=== PATIENT | male | born 1980 | race Caucasian/White ===

== ENCOUNTER 2022-08-02 22:56 | Emergency (ER) | payer SELFPAY ==
[2022-08-02] VITALS (11 sets, daily range): BP systolic 99–120; BP diastolic 52–68; PULSE 66–84; RESP 14–21; TEMP 36.7; O2SAT 93–97
--- NOTE | 2022-08-02 22:45 | RT.EKG_ITS ---
APPROVED REPORT Exam: Resting ECG Reason for Exam: chest pain Patient Location: E HR:68 bpm ECG Measurements Heart Rate 68 AXIS TN 149 P 46 QRSd 97 QRS -15 QT 406 T 19 QTc 434 Conclusion Sinus rhythm...normal P axis, V-rate 60- 99 Physician: no stemi
--- NOTE | 2022-08-02 23:00 | DI.CT_ITS ---
Exam(s) CT CHEST PE CTA EXAM: CT CHEST PE CTA CLINICAL HISTORY: stabbing right CP, eval for PE. TECHNIQUE: Imaging Protocol: CT angiography of the chest was performed using pulmonary embolus bianca col. Multi planar reconstructions were performed. CONTRAST MATERIAL: Intravenous: Omnipaque 350 Contrast volume: 100 cc COMPARISON: No exams were available for comparison FINDINGS: CHEST: PULMONARY ARTERIES: Less than optimal opacification of the distal pulmonary arteries. There are no o bvious intraluminal filling defects to suggest obvious acute pulmonary emboli. LUNGS: There are no infiltrates nor evidence of pulmonary infarction.. There are no pleural effusions . MEDIASTINUM: There is no hilar nor mediastinal adenopathy. Visualized thyroid unremarkable. CARDIAC: Heart size is upper normal. There is no pericardial effusion.Caliber of the thoracic aorta is within normal limits. No evidence of aortic dissection. There is no significant shift of the inte rventricular septum. PARTIALLY VISUALIZED UPPERMOST ABDOMEN: No obvious findings OSSEOUS: No significant osseous lesions.No acute fractures evident.. IMPRESSION: 1. No evidence of acute pulmonary emboli. No evidence of pulmonary infarction.No pleural effusions. 2. No acute intrathoracic findings. RADIATION DOSE DELIVERED: 669.25mGy.cm Total DLP DATA REPOSITORY: All CT scans at this facility are submitted to the National Radiology Data Registry (NRDR) Dose Index Registry (DIR) with the [employer] (ACR). RADIATION OPTIMIZATION: All CT scans at this facility use at least one of these dose optimization te chniques: automated exposure control; mA and/or kV adjustment per patient size (includes targeted exa ms where dose is matched to clinical indication); or iterative reconstruction.
--- NOTE | 2022-08-02 23:11 | ED.GENADUL_ITS ---
Discharge Plan Disposition Patient Disposition: Home Discharge Details Chief Complaint: Chest Pain Clinical Impression: Chest pain Primary Care Provider: Paul Gage ED Provider: Brad Herron Home Meds and New Rx's Prescriptions: No Action No Known Home Meds Discharge Instructions Instructions: Chest Pain (ED) Additional Instructions: At this time your work-up has returned normal. There is no current evidence of heart attack. That being said it is our recommendation that he stay overnight for stress testing. You have elected to go home, and as we discussed together it is imperative that you return immediately if you have any return or worsening of your symptoms. In addition to this we are scheduling an urgent outpatient stress test for you. Please do not miss this appointment. They will contact you for the appointment time. If you notice any worsening of your symptoms, or any new symptoms such as vomiting, diarrhea, fever, chills, shortness of breath, chest pain, numbness, weakness, or fainting , please return immediately to the emergency department for reevaluation. Please follow up with your primary care provider as soon as possible for reassessment and reevaluation. As always, it was a pleasure participating in your medical care today. Referrals: Paul Gage MD [Primary Care Provider] - Medical Decision Making 42-year-old old male with past medical history of tobacco use, vaping, strong family history of cardiac disease in his mother, father, and other relatives, who presents today for evaluation of chest pain. Patient states that 2 hours ago he developed stabbing right-sided chest pain. It is worse with breathing. It initially started at rest, but got worse whenever he would get up and exert himself. It was improved by rest subsequently. He denies any cough, fever or chills. He denies any numbness or tingling. He denies any current vomiting or diarrhea. He denies any recent long trips, surgeries or procedures. No other complaints at this time. He states that the stabbing pain also feels like a heavy weight. Radiates to his left arm. He denies any tearing or ripping sensation. No history of symptoms like this in the past. Physical exam demonstrates well-appearing male, vital signs stable. Concern is for PE, ACS, less likely pneumothorax. Symptoms appear inconsistent with dissection. Will get CTA of the chest, evaluate for cardiac etiology, monitor closely and reassess. 2:26 AM Laboratory work-up has returned, no significant abnormalities. Initial and delta troponin are normal. proBNP is normal suggesting no heart strain. CTA is negative for evidence of PE or other significant abnormality. Patient feels si gnificantly improved and better. Patient does have elevated heart score with risk factors of family history, tobacco use, and mild obesity. Recommendation was made clear to the patient to stay overnight for stress testing on Thursday morning. I did discuss with the patient admission/observation to the hospital , and at this time through notable discussion, weighing the risks and benefits, utilizing a shared decision making process, and with a very clear discussion on the benefit of admission and the risks associated with discharge including the unlikely but potential worst case scenario of or lifelong disability the patient has refused admission and would like to go home. Patient is of a appropriate age to make decisions. The patient is of sound mind, appears clinically sober, and has capacity to make decisions by my clinical exam. Respecting the patient's wishes, they will be discharged home. We will schedule an emergent outpatient stress test for the patient. I made it extremely clear that the patient should return immediately if he has any return or worsening of his symptoms. This was also reiterated to his family who is at bedside. Discussed red flags for which to return. Symptoms at this time appear inconsistent for STEMI, PE, or dissection. Stress, anxiety, and GERD may be a component however cardiac etiology still is on the differential. I have extensively reviewed the treatment plan and discharge instructions with the patient and their family. I have addressed all patient concerns at this time. The patient and family was made aware of what symptoms to monitor for that would warrant a return to the emergency department. Discussed the plan with the patient and family, they demonstrate verbal understanding and agreement with our assessment and plan at this time. The documentation in this chart was dictated using [employer] dictation software. Please excuse any dictation errors. FINDINGS: Pulmonary arteries: Normal. No pulmonary emboli. Aorta: Unremarkable. No aortic aneurysm. No aortic dissection. Lungs: Unremarkable. No consolidation. No masses. Pleural spaces: Unremarkable. No pneumothorax. No pleural effusion. Heart: Unremarkable. No cardiomegaly. No pericardial effusion. Lymph nodes: Unremarkable. No enlarged lymph nodes. Bones/joints: Multilevel thoracic spine degenerative disc space narrowing and osteophyte formation, with mild kyphosis of the lower thoracic spine, secondary to minimal chronic multilevel anterior wedging. Soft tissues: Unremarkable. IMPRESSION: No acute thoracic abnormality Thank you for allowing us to participate in the care of your patient. Dictated and Authenticated by: Levar Gore MD 08/03/2022 1:28 AM Eastern Time ([place] & [place]) HPI General Date/Time Provider Initiated Documentation: 08/02/22 22:57 . HPI Narrative: 42-year-old old male with past medical history of tobacco use, vaping, strong family history of cardiac disease in his mother, father, and other relatives, who presents today for evaluation of chest pain. Patient states that 2 hours ago he developed stabbing right-sided chest pain. It is worse with breathing. It initially started at rest, but got worse whenever he would get up and exert himself. It was improved by rest subsequently. He denies any cough, fever or chills. He denies any numbness or tingling. He denies any current vomiting or diarrhea. He denies any recent long trips, surgeries or procedures. No other complaints at this time. He states that the stabbing pain also feels like a heavy weight. Radiates to his left arm. He denies any tearing or ripping sensation. No history of symptoms like this in the past. Related Data Home Medications Medication Instructions Recorded Confirmed Unknown [No Known Home Meds] 08/02/22 08/02/22 Allergies Allergy/AdvReac Type Severity Reaction Status Date / Time No Known Allergies Allergy Unverified 08/02/22 23:54 Review of Systems All systems reviewed & are unremarkable except as noted in HPI and below PFSH All Active Problems (Updated 08/03/22 @ 02:25 by Brad Herron DO) Chest pain (Acute) Social History Smoking/Tobacco Use Status: Current, status unknown Tobacco Type: cigarettes Tobacco: How many years used: 10 Smoking risk assessment performed?: Yes Alcohol Intake: current Alcohol type: beer, wine and hard liquor Substance use type: does not use Do you feel safe at home: Yes Do you feel safe in your relationship?: Yes Exam Narrative Exam Narrative: 1.Const: Well-nourished, Well-developed, appearing stated age 2.Eyes: PERRL, no conjunctival injection, and symmetrical lids. 3.ENT: Atraumatic external nose and ears. Moist MM. Neck: Symmetric, trachea midline, No thyromegaly. 4.CVS: +S1/S2, No murmurs or gallops. Peripheral pulses 2+ and equal in all extremities. Brisk capillary refill in all extremities. 5.RESP: Unlabored respiratory effort. Clear to auscultation bilaterally. No wheezes rales or rhonchi 6.GI: Soft, Nontender/Nondistended, No hepatosplenomegaly. No guarding or rebound. 7.MSK: Normocephalic/Atraumatic, Extremities w/o deformity or ttp No cyanosis or clubbing, Normal movement of all extremities 8.Skin: Warm, Dry. No rashes or lesions. 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 Sensation grossly intact, no focal neurologic deficits. 10.Psych: (AAO) x3. Appropriate mood and affect
[2022-08-02 23:40] LABS: Abs Immature Grans 0.02 10^3/uL (0.0-0.06); Absolute Basophil Count 0.04 10^3/uL (0.0-0.2); Absolute Eosinophil Count 0.31 10^3/uL (0.0-0.7); Absolute Lymphocyte Count 2.81 10^3/uL (1.2-3.4); Absolute Monocyte Count 0.43 10^3/uL (0.1-0.8); Basophils % 0.5; Eosinophils % 3.7; HCT 43.2 % (40.0-50.0); HGB 14.5 g/dL (13.5-17.5); Immature Grans % 0.2; Lymphocytes % 33.8; MCH 30.7 pg (27.0-33.0); MCHC 33.6 % (32.0-36.0); MCV 92 fL (80-95); MPV 10.9 fL (8.0-11.0); Monocytes % 5.2; Neutrophils % 56.6; Platelet Count 176 10^3/uL (130-400); RBC 4.72 10^6/uL (4.36-5.78); RDW 13.3 % (11.8-14.1); RDW-SD 45.2 fL; WBC 8.31 10^3/uL (4.4-10.8)
[2022-08-02] MEDS: Aspirin 81 MG CHEW 324 MG CH (23:41)
[2022-08-02] MEDS: nitroGLYcerin 0.4 MG TAB SL (23:41)
[2022-08-02 23:53] LABS: INR 0.9 (0.9-1.1); PTT Activated 23.9 sec (21.5-31.9); Prothrombin Time 9.4 sec (9.3-11.0)
[2022-08-03] VITALS (14 sets, daily range): PULSE 71–78; RESP 15–24; O2SAT 94–98
[2022-08-03 00:03] LABS: ALT 40 U/L (16-63); AST 19 U/L (15-37); Albumin 3.5 g/dL (3.4-5.0); Alkaline Phosphatase 94 U/L (46-116); Anion Gap 6.7 mmol/L (3-11); BUN 24 mg/dL (7-18); Bilirubin, Total 0.3 mg/dL (0.2-1.0); CO2 28.3 mmol/L (21.0-32.0); CREATININE 1.1 mg/dL (0.70-1.30); Calcium 8.5 mg/dL (8.5-10.1); Chloride 105 mmol/L (98-107); Estimated GFR 84.89 (mL/min/1.73m2); Glucose 135 mg/dL (74-106); Potassium 3.7 mmol/L (3.5-5.1); Sodium 140 mmol/L (136-145); Total Protein 6.4 g/dL (6.4-8.2); Troponin I < 50 ng/L (<or=60)
[2022-08-03 00:04] LABS: NT-proBNP 71 pg/mL (<300); TSH (W/Ref FT4) 2.08 uIU/mL (0.36-3.74)
[2022-08-03] MEDS: Omnipaque 350 MG/ML 100 ML BTL IJ (00:15)
[2022-08-03] MEDS: Normal Saline - Diluent 50 ML VIAL IJ (00:16)
--- NOTE | 2022-08-03 01:29 | DI.VRAD_ITS ---
PROCEDURE INFORMATION: Exam: CTA Chest With Contrast Exam date and time: 08/03/2022 12:00 AM Age: 42 years old Clinical indication: Pain; Chest pressure and right-sided TECHNIQUE: Imaging protocol: Computed tomographic angiography of the chest with contrast. 3D rendering (Not supervised by radiologist): MIP and/or 3D reconstructed images were created by the technologist. Contrast material: OMNIPAQUE 350; Contrast volume: 100 ml; Contrast route: INTRAVENOUS (IV); COMPARISON: No relevant prior studies available. FINDINGS: Pulmonary arteries: Normal. No pulmonary emboli. Aorta: Unremarkable. No aortic aneurysm. No aortic dissection. Lungs: Unremarkable. No consolidation. No masses. Pleural spaces: Unremarkable. No pneumothorax. No pleural effusion. Heart: Unremarkable. No cardiomegaly. No pericardial effusion. Lymph nodes: Unremarkable. No enlarged lymph nodes. Bones/joints: Multilevel thoracic spine degenerative disc space narrowing and osteophyte formation, with mild kyphosis of the lower thoracic spine, secondary to minimal chronic multilevel anterior wedging. Soft tissues: Unremarkable. IMPRESSION: No acute thoracic abnormality. Dictated and Authenticated by: Levar Gore MD. Ordering:DORIE Salinas MD
--- NOTE | 2022-08-03 01:45 | RT.EKG_ITS ---
APPROVED REPORT Exam: Resting ECG Reason for Exam: chest pain Patient Location: E HR:68 bpm ECG Measurements Heart Rate 68 AXIS MO 154 P 24 QRSd 95 QRS -6 QT 402 T 21 QTc 429 Conclusion Sinus rhythm...normal P axis, V-rate 60- 99 Physician: no stemi
[2022-08-03 02:07] LABS: Troponin I < 50 ng/L (<or=60)
--- NOTE | 2022-08-03 05:22 | NUR.NOTE ---
Regular Exercise Treadmill Test requ[facility]. Referral to Care Management to establish pcp for chest pain sooner rather than later.Nursing Note:
== END 2022-08-03 02:35 | disposition home or self-care (01) ==
PROVIDERS: Emergency Provider Student in an Organized Health Care Education/Training Program; PCP Family Medicine
DX: R07.9 Chest pain, unspecified (principal); Z87.891 Personal history of nicotine dependence
CPT/HCPCS: 71275; 80053; 93005; 99284; 83880; 84443; 84484; 85025; 85610; 85730; 93010; J3490

== ENCOUNTER 2022-08-27 22:44 | Emergency (ER) | payer MEDICAID, SELFPAY ==
--- NOTE | 2022-08-27 22:45 | RT.EKG_ITS ---
APPROVED REPORT Exam: Resting ECG Reason for Exam: chest pains Patient Location: E HR:76 bpm ECG Measurements Heart Rate 76 AXIS TX 156 P 45 QRSd 97 QRS -25 QT 405 T 25 QTc 456 Conclusion Sinus rhythm...normal P axis, V-rate 60- 99 Physician: no stemi
[2022-08-27 22:48] VITALS: BP 134/68; PULSE 75; RESP 22; TEMP 37.5; O2SAT 97
--- NOTE | 2022-08-27 23:00 | DI.CT_ITS ---
Exam(s) CT ABDOMEN PELVIS W EXAM: CT ABDOMEN PELVIS W CLINICAL HISTORY: epigastric pain, eval gb and pancrease. TECHNIQUE: Imaging Protocol: Axial computed tomography images with coronal and sagittal reformatted images were created and reviewed CONTRAST MATERIAL: Intravenous: Omnipaque-350 100cc Oral: None COMPARISON: CT CT CHEST PE CTA from 08/03/2022 FINDINGS: VISUALIZED LUNG BASES: No nodules nor pleural effusions evident. ABDOMEN: There is no ascites. LIVER: There are no focal hepatic lesions evident. No dilated intrahepatic ducts. GALLBLADDER/BILIARY: No obvious gallbladder pathology. CBD is not dilated. PANCREAS: No evidence of pancreatic mass nor dilatation of the pancreatic duct. SPLEEN: Spleen is not enlarged. No obvious intrasplenic lesions. Splenic and portal veins are paten t. ADRENALS: There are no significant adrenal masses. KIDNEYS:No cysts evident. No solid renal masses. No calculi nor hydronephrosis.. ABDOMINAL AORTA: Abdominal aorta is not enlarged. LYMPH NODES:There is no retroperitoneal nor paraaortic adenopathy. ABDOMINAL WALL: No evidence of significant anterior abdominal wall nor inguinal hernia. GI: There is no evidence of bowel obstruction, free air, nor abscess. PELVIS: GI: Although some the appendix appears unremarkable, the mid aspect of the appendix appears dilated t o 11 mm, possibly significant. There is no calcified appendicolith evident in the appendix lumen. T here is very minimal streaking around the appendix. No adjacent adenopathy.There is sigmoid divertic nadia but without evidence of acute diverticulitis. LYMPH NODES: There is no intrapelvic nor inguinal adenopathy. REPRODUCTIVE: Prostate not enlarged. Seminal vesicles unremarkable. URINARY BLADDER: No calculi nor obvious masses evident OSSEOUS: Nonacute appearing wedging of lower thoracic vertebral bodies. No acute fractures evident. No significant osseous lesions. IMPRESSION: 1. Subtle prominence of part of the appendix, as described above. May represent early appendicitis. Correlation with physical exam and blood work recommended. 2. Sigmoid diverticulosis but no evidence of acute diverticulitis. First read by [facility]. RADIATION DOSE DELIVERED: 1,348.16mGy.cm Total DLP DATA REPOSITORY: All CT scans at this facility are submitted to the National Radiology Data Registry (NRDR) Dose Index Registry (DIR) with the [employer] (ACR). RADIATION OPTIMIZATION: All CT scans at this facility use at least one of these dose optimization te chniques: automated exposure control; mA and/or kV adjustment per patient size (includes targeted exa ms where dose is matched to clinical indication); or iterative reconstruction.
--- NOTE | 2022-08-27 23:10 | W.ED.GENAD ---
Discharge Plan Disposition Patient Disposition: Against Medical Advice Condition: Serious Discharge Details Clinical Impression: Acute appendicitis Primary Care Provider: None,None ED Provider: Brad Herron Home Meds and New Rx's Prescriptions: No Action No Known Home Meds Discharge Instructions Additional Instructions: It is not our recommendations that you leave. You do have a potentially life-threatening etiology called appendicitis. This requires immediate surgical management. If you change your mind at any point you can return immediately for consultation. Although this is not the ideal scenario, I will still be sending your images down to [facility], and letting them know about your potential arrival Medical Decision Making 42-year-old old male with past medical history of tobacco use, vaping, strong family history of cardiac disease in his mother, father, and other relatives, who presents today for evaluation of chest pain. Patient was here 1 month ago with chest pain at that time, work-up was negative, patient declined admission, patient was discharged with outpatient stress test which unfortunately he also eventually declined. He presents today with epigastric discomfort. The symptoms are different than his previous episode which was more so in the chest. This epigastric discomfort is described as aching and punching in sensation. Radiates to the left side of the epigastric region. Not worse with breathing. He does admit to being slightly short of breath and does smoke regularly. He denies any new shortness of breath. He does not have an inhaler at home. Symptoms in his abdomen are only minimally worsened with activity. They are not improved by rest. He denies any vomiting or diarrhea. No alcohol use today. He was out fishing for quite some time in the sun and feels like he did not drink much. He denies any spicy foods today. No other complaints at this time. No other modifying factors. Exam demonstrates well-appearing male, mild epigastric tenderness. No pain to McBurney's point, negative Love sign. Differential includes cardiac etiology although this is less likely given the symptoms and reproducibility in the epigastric region. Pancreatitis, gastritis, cholecystitis, or also of concern. Patient does have wheezes that are diffusely throughout. Suspect a component of asthma/COPD or part of his mild shortness of breath at this time. Symptoms appear clinically inconsistent with pulmonary embolism. Will evaluate for concerning etiologies, monitor closely and reassess. 12:35 CT scan shows evidence of an acute appendicitis. Repeat exam continues to show evidence of epigastric tenderness, however the patient also on repeat exam does demonstrate right lower quadrant tenderness only with palpation. He definitely has notable tenderness in that area with palpation though. Symptoms certainly are clinically suspicious for appendicitis. He has no white count or fever, lactate is mildly elevated at 2. He has been rehydrated with 2 L. We we will reach out to surgery for potential intervention. 1:57 AM Unfortunately it was requested that a page be sent out to surgery at 1235 when we initially found out about the appendicitis, unfortunately this page was never sent out by access. We did reach back out to access that 1:45am as we had not heard back from the surgeon. and page was subsequently sent out at that time. Unfortunately when I went in to reassess the patient at 1:50 AM he was extremely upset with the weight, and asked for his IV to be removed immediately so he could go to [facility]. I informed him of the delay, and made very clear to him that the surgeon should be calling back shortly. Patient felt that this was still unacceptable and requested that the IV be removed immediately. Patient is of a appropriate age to make decisions. The patient is of sound mind, appears clinically sober, and has capacity to make decisions by my clinical exam. We have provided options for treatment and discussed the risks and benefits of these options and refusing these options, including and disability specific to the patient's pathology. Patient is able to discuss the risks and benefits and alternatives of treatment and refusing treatment. We have tried to involve the patient's family who is at bedside and they deferred to the patient. The patient chooses to leave before evaluation and treatment is complete AGAINST MEDICAL ADVICE. While the patient was walking out the surgeon had promptly called back. We informed the patient as he was leaving that I had the surgeon actively on the phone and the patient stated it does not matter to me. And still promptly left. It was made unequivocally clear to him that that was not the wisest course of action out of my concern for potential harm that could come to the patient. I did plead with the patient to stay but he continued to make the choice to leave. I did contact [facility], and informed them that he would be coming down there. We did send his images down there to [facility], and they are aware that he may be coming. FINDINGS: Lungs: The lungs are otherwise normal. Pleural spaces: There is no evidence of pneumothorax. There are no pleural effusions present. Heart: The cardiac structures are normal. Liver: There are no focal liver lesions present. There is no evidence of intrahepatic or extrahepatic biliary ductal dilation. Gallbladder and bile ducts: The gallbladder is normal. There is no cholelitiasis, wall thickening or pericholecystic fluid to suggest cholecystitis. Pancreas: There is moderate pancreatic atrophy and fatty replacement. The pancreas is normal. Spleen: The spleen is normal. Adrenal glands: The adrenal glands are normal without evidence of mass or enlargement. Kidneys and ureters: The kidneys are normal no evidence of nephrolithiasis or hydronephrosis. The ureters are normal caliber and follow a normal caliber and course. Stomach and bowel: There is no evidence of intestinal obstruction. Appendix: The appendix measures 12 mm in diameter. There is mild periappendiceal inflammation. These findings are consistent with early or mild acute appendicitis. No evidence of associated abscess or perforation. No prior studies available for comparison clinical correlation is strongly recommended. Intraperitoneal space: There is no free intraperitoneal air. There is no evidence of free intraperitoneal or pelvic fluid. Vasculature: The aorta is unremarkable without evidence of significant atherosclerosis or aneurysmal disease. The peripheral arterial vascular system visualized is unremarkable. The portal venous system visualized is unremarkable. The peripheral venous vascular system visualized is unremarkable. Lymph nodes: There is no evidence of lymphadenopathy. Urinary bladder: Unremarkable as visualized. Reproductive: Unremarkable as visualized. Bones/joints: Unremarkable. No acute fracture. Soft tissues: Unremarkable. IMPRESSION: The appendix measures 12 mm in diameter. There is mild periappendiceal inflammation. These findings are consistent with early or mild acute appendicitis. No evidence of associated abscess or perforation. No prior studies available for comparison clinical correlation is strongly recommended. Thank you for allowing us to participate in the care of your patient. Dictated and Authenticated by: Daryl Morales MD 08/28/2022 12:41 AM Eastern Time ([place] & [place]) HPI General Date/Time Provider Initiated Documentation: 08/27/22 23:07. HPI Narrative: 42-year-old old male with past medical history of tobacco use, vaping, strong family history of cardiac disease in his mother, father, and other relatives, who presents today for evaluation of chest pain. Patient was here 1 month ago with chest pain at that time, work-up was negative, patient declined admission, patient was discharged with outpatient stress test which unfortunately he also eventually declined. He presents today with epigastric discomfort. The symptoms are different than his previous episode which was more so in the chest. This epigastric discomfort is described as aching and punching in sensation. Radiates to the left side of the epigastric region. Not worse with breathing. He does admit to being slightly short of breath and does smoke regularly. He denies any new shortness of breath. He does not have an inhaler at home. Symptoms in his abdomen are only minimally worsened with activity. They are not improved by rest. He denies any vomiting or diarrhea. No alcohol use today. He was out fishing for quite some time in the sun and feels like he did not drink much. He denies any spicy foods today. No other complaints at this time. No other modifying factors. Related Data Home Medications Medication Instructions Recorded Confirmed Unknown [No Known Home Meds] 08/02/22 08/02/22 Allergies Allergy/AdvReac Type Severity Reaction Status Date / Time No Known Allergies Allergy Unverified 08/02/22 23:54 General Stated Complaint: Chest Pain HORACIO: 3 Review of Systems All systems reviewed & are unremarkable except as noted in HPI and below PFSH All Active Problems (Updated 08/28/22 @ 01:58 by Brad Herron DO) Chest pain (Acute) Acute appendicitis (Acute) Social History Smoking/Tobacco Use Status: Current, status unknown Tobacco Type: cigarettes Tobacco: How many years used: 10 Smoking risk assessment performed?: Yes Alcohol Intake: current Alcohol type: beer, wine and hard liquor Substance use type: does not use Do you feel safe at home: Yes Do you feel safe in your relationship?: Yes Exam Narrative Exam Narrative: 1.Const: Well-nourished, Well-developed, appearing stated age 2.Eyes: PERRL, no conjunctival injection, and symmetrical lids. 3.ENT: Atraumatic external nose and ears. Moist MM. Neck: Symmetric, trachea midline, No thyromegaly. 4.CVS: +S1/S2, No murmurs or gallops. Peripheral pulses 2+ and equal in all extremities. Brisk capillary refill in all extremities. 5.RESP: Unlabored respiratory effort. Mild wheezes, no rales or rhonchi. 6.GI: Soft, mild epigastric discomfort. No guarding or rebound. No pain to McBurney's point. Negative Love sign. 7.MSK: Normocephalic/Atraumatic, Extremities w/o deformity or ttp No cyanosis or clubbing, Normal movement of all extremities 8.Skin: Warm, Dry. No rashes or lesions. 9.Neuro: copy worker II-XII grossly intact. Sensation grossly intact, no focal neurologic deficits. 10.Psych: (AAO) x3. Appropriate mood and affect Course Vital Signs Vital signs: Vital Signs Temperature 37.5 C 08/27/22 22:48 Pulse 75 08/27/22 22:48 Respiratory Rate 22 08/27/22 22:48 Blood Pressure 134/68 08/27/22 22:48 Pulse Oximetry 97 08/27/22 22:48 Temperature 37.5 C 08/27/22 22:48 Pulse 75 08/27/22 22:48 Respiratory Rate 22 08/27/22 22:48 Respiratory Effort Short of Breath 08/27/22 22:52 Blood Pressure 134/68 08/27/22 22:48 Pulse Oximetry 97 08/27/22 22:48 Oxygen Delivery Method Room Air 08/27/22 22:48 Oxygen Flow Rate 0 08/27/22 22:48 Pain Level 4 08/27/22 22:48
[2022-08-27 23:20] LABS: Abs Immature Grans 0.02 10^3/uL (0.0-0.06); Absolute Basophil Count 0.09 10^3/uL (0.0-0.2); Absolute Eosinophil Count 0.36 10^3/uL (0.0-0.7); Absolute Lymphocyte Count 3.43 10^3/uL (1.2-3.4); Absolute Neutrophil Count 4.51 10^3/uL (1.2-6.7); Eosinophils % 4.1; HCT 44.4 % (40.0-50.0); HGB 15.5 g/dL (13.5-17.5); Immature Grans % 0.2; Lymphocytes % 38.9; MCH 31.7 pg (27.0-33.0); MCHC 34.9 % (32.0-36.0); MCV 91 fL (80-95); MPV 11.2 fL (8.0-11.0); Monocytes % 4.5; Neutrophils % 51.3; Platelet Count 191 10^3/uL (130-400); RBC 4.89 10^6/uL (4.36-5.78); RDW 12.8 % (11.8-14.1); RDW-SD 42.5 fL; WBC 8.81 10^3/uL (4.4-10.8)
[2022-08-27] MEDS: Ketorolac 15 MG/ML VIAL IVP (23:20)
[2022-08-27 23:21] VITALS: RESP 1; RESP 8
[2022-08-27] MEDS: Normal Saline 1,000 ML 1000 ML IV ×2 (23:21→23:22)
[2022-08-27] MEDS: Albuterol/Ipratropium 3 ML UPD VIAL UPD (23:21)
[2022-08-27] MEDS: methylPREDNISolone SUCC 125 MG VIAL IVP (23:21)
[2022-08-27 23:39] LABS: ALT 51 U/L (16-63); AST 24 U/L (15-37); Albumin 3.7 g/dL (3.4-5.0); Alkaline Phosphatase 100 U/L (46-116); Anion Gap 10.1 mmol/L (3-11); BUN 22 mg/dL (7-18); Bilirubin, Total 0.4 mg/dL (0.2-1.0); CO2 26.9 mmol/L (21.0-32.0); CREATININE 1.4 mg/dL (0.70-1.30); Calcium 8.2 mg/dL (8.5-10.1); Chloride 106 mmol/L (98-107); Estimated GFR 63.56 (mL/min/1.73m2); Glucose 132 mg/dL (74-106); Lipase 47 U/L (16-77); Potassium 3.7 mmol/L (3.5-5.1); Sodium 143 mmol/L (136-145); Total Protein 6.9 g/dL (6.4-8.2)
[2022-08-28] MEDS: Omnipaque 350 MG/ML 100 ML BTL IJ (00:07)
[2022-08-28] MEDS: Normal Saline - Diluent 50 ML VIAL IJ (00:14)
--- NOTE | 2022-08-28 00:41 | DI.VRAD_ITS ---
Addendum created by Daryl Morales MD on 08/28/2022 12:41:20 AM EDT: THIS REPORT CONTAINS FINDINGS THAT MAY BE CRITICAL TO PATIENT CARE. The findings were verbally communicated via telephone conference with JOLENE JASNO at 12:41 AM EDT on 08/28/2022. The findings were acknowledged and understood. Initial report created on 08/28/2022 12:41:04 AM EDT: PROCEDURE INFORMATION: Exam: CT Abdomen And Pelvis With Contrast Exam date and time: 08/28/2022 12:06 AM Age: 42 years old Clinical indication: Abdominal pain; Localized; Upper; Additional info: Epigastric pain, eval gb and pancrease TECHNIQUE: Imaging protocol: Computed tomography of the abdomen and pelvis with contrast. Radiation optimization: All CT scans at this facility use at least one of these dose optimization techniques: automated exposure control; mA and/or kV adjustment per patient size (includes targeted exams where dose is matched to clinical indication); or iterative reconstruction. Contrast material: OMNI 350; Contrast volume: 100 ml; Contrast route: INTRAVENOUS (IV); COMPARISON: CT CHEST PE CTA 08/03/2022 12:00 AM FINDINGS: Lungs: The lungs are otherwise normal. Pleural spaces: There is no evidence of pneumothorax. There are no pleural effusions present. Heart: The cardiac structures are normal. Liver: There are no focal liver lesions present. There is no evidence of intrahepatic or extrahepatic biliary ductal dilation. Gallbladder and bile ducts: The gallbladder is normal. There is no cholelitiasis, wall thickening or pericholecystic fluid to suggest cholecystitis. Pancreas: There is moderate pancreatic atrophy and fatty replacement. The pancreas is normal. Spleen: The spleen is normal. Adrenal glands: The adrenal glands are normal without evidence of mass or enlargement. Kidneys and ureters: The kidneys are normal no evidence of nephrolithiasis or hydronephrosis. The ureters are normal caliber and follow a normal caliber and course. Stomach and bowel: There is no evidence of intestinal obstruction. Appendix: The appendix measures 12 mm in diameter. There is mild periappendiceal inflammation. These findings are consistent with early or mild acute appendicitis. No evidence of associated abscess or perforation. No prior studies available for comparison clinical correlation is strongly recommended. Intraperitoneal space: There is no free intraperitoneal air. There is no evidence of free intraperitoneal or pelvic fluid. Vasculature: The aorta is unremarkable without evidence of significant atherosclerosis or aneurysmal disease. The peripheral arterial vascular system visualized is unremarkable. The portal venous system visualized is unremarkable. The peripheral venous vascular system visualized is unremarkable. Lymph nodes: There is no evidence of lymphadenopathy. Urinary bladder: Unremarkable as visualized. Reproductive: Unremarkable as visualized. Bones/joints: Unremarkable. No acute fracture. Soft tissues: Unremarkable. IMPRESSION: The appendix measures 12 mm in diameter. There is mild periappendiceal inflammation. These findings are consistent with early or mild acute appendicitis. No evidence of associated abscess or perforation. No prior studies available for comparison clinical correlation is strongly recommended. Dictated and Authenticated by: Daryl Morales MD. Ordering:DORIE Salinas MD
[2022-08-28 00:47] LABS: Bilirubin Negative (Negative); Blood Negative (Negative); Clarity Clear (Clear); Glucose Negative (Negative); Ketones Negative (Negative); Leukocyte Esterase Negative (Negative); Nitrite Negative (Negative); pH 5.5 (5-8)
[2022-08-28 00:48] VITALS: BP 134/68; PULSE 68; RESP 16; O2SAT 98
== END 2022-08-28 01:58 | disposition left against medical advice (07) ==
PROVIDERS: Emergency Provider Student in an Organized Health Care Education/Training Program
DX: R07.9 Chest pain, unspecified (principal); R06.02 Shortness of breath; G43.909 Migraine, unspecified, not intractable, without status migrainosus; Z53.21 Procedure and treatment not carried out due to patient leaving prior to being seen by health care provider; K35.80 Unspecified acute appendicitis
CPT/HCPCS: 36415; 80053; 83690; 93005; 94640; 96361; 96374; 96375; 99285; 74177; 81003; 83605; 85025; 93010; J1885; J2930; J3490; J7620

== ENCOUNTER 2022-08-31 22:32 | Inpatient (IN) | payer MEDICAID, SELFPAY ==
[2022-08-31 22:34] VITALS: BP 153/71; PULSE 79; RESP 24; TEMP 37.1; O2SAT 98
--- NOTE | 2022-08-31 22:45 | DI.CT_ITS ---
Exam(s) CT ABDOMEN PELVIS W EXAM: CT ABDOMEN PELVIS W CLINICAL HISTORY: recheck for recent appendicitis diagnosis TECHNIQUE: Imaging Protocol: Axial computed tomography images with coronal and sagittal reformatted images were created and reviewed CONTRAST MATERIAL: Intravenous: Omnipaque 350 Contrast volume:100 mL Oral: No COMPARISON: CT CT CHEST PE CTA from 08/03/[address] ABDOMEN PELVIS W from 08/28/2022 FINDINGS: ABDOMEN: Lung Bases: Normal where visualized. Liver: Normal density. No measurable mass. Portal, Superior Mesenteric, and Splenic Veins: Unremarkable. Gallbladder and Biliary Tract: No radiodense calculus or dilation. Pancreas: Normal density, no abnormal calcifications or inflammatory process. Spleen: There is a tiny cyst 2 to 3 mm cyst in the pancreas. No follow-up is recommended. Adrenals: No masses seen. Kidneys: Normal size, contour and axis. No radiodense stones or obstructive uropathy. No masses seen. Abdominal Aorta: Abdominal portion non-dilated. Bowel: There is diverticulosis seen in the colon, but no evidence of acute diverticulitis. There is no evidence of bowel obstruction. The appendix measures 1.3 cm in diameter. There is mild enhanceme nt of the wall. Inflammatory changes are seen in the soft tissues around the appendix. No abscess o r free air. No appendicoliths. Findings are most suggestive of acute appendicitis. Peritoneal Cavity: No ascites, collection or mesenteric inflammatory response. No free air. Lymph Nodes: Within normal limits. Bones: Within normal limits for the patient's age. Soft Tissues: Unremarkable. PELVIS: Bladder: Symmetric distention, no gross wall thickening. Reproductive Organs: Unremarkable as visualized. Lymph Nodes: Within normal limits. Bones: Within normal limits for the patient's age. IMPRESSION: Findings consistent with acute appendicitis. No abscess or free air. RADIATION DOSE DELIVERED: 1,536.12mGy.cm Total DLP DATA REPOSITORY: All CT scans at this facility are submitted to the National Radiology Data Registry (NRDR) Dose Index Registry (DIR) with the [employer] (ACR). RADIATION OPTIMIZATION: All CT scans at this facility use at least one of these dose optimization te chniques: automated exposure control; mA and/or kV adjustment per patient size (includes targeted exa ms where dose is matched to clinical indication); or iterative reconstruction.
--- NOTE | 2022-08-31 22:48 | W.ED.GENAD ---
Discharge Plan Disposition Patient Disposition: Admit to [facility] Discharge Details Chief Complaint: Abd Prob Clinical Impression: Appendicitis Primary Care Provider: None,None ED Provider: Ricardo Poole Home Meds and New Rx's Prescriptions: No Action No Known Home Meds Medical Decision Making 42-year-old male recently diagnosed with acute appendicitis, left AGAINST MEDICAL ADVICE due to anxiety, returns with worsening abdominal pain nausea and vomiting. Patient is hemodynamically stable uncomfortable appearing however nontoxic. Patient does have guarding in the right lower quadrant. Concern for worsening appendicitis must also consider ruptured appendicitis given peritoneal signs. Starting on empiric Zosyn. Obtaining labs, preop labs analgesia antiemetics. Repeat CT scan. Admission to general surgery for appendectomy likely 00: 18 evidence of worsening appendicitis, non ruptured; patient NPO, abx running; discussed cased with Dr. Gonzalez of general surgery who will admit patient for planned appendectomy tomorrow HPI General Date/Time Provider Initiated Documentation: 08/31/22 22:37. HPI Narrative: 42-year-old male presents for recheck of abdominal pain in the setting of acute appendicitis. Was seen within the last couple of days here in the department diagnosed with acute appendicitis, left AGAINST MEDICAL ADVICE because he was anxious. Patient endorses worsening vomiting and worsening pain Related Data Home Medications Medication Instructions Recorded Confirmed Unknown [No Known Home Meds] 08/02/22 08/02/22 Allergies Allergy/AdvReac Type Severity Reaction Status Date / Time No Known Allergies Allergy Unverified 08/02/22 23:54 General Stated Complaint: Abd Prob HORACIO: 3 Review of Systems Narrative: Review of Systems Constitutional: negative Eyes: negative ENT: negative Cardiovascular: negative Respiratory: negative Gastrointestinal: Abdominal pain nausea vomiting : negative Musculoskeletal: negative Skin: negative Neurologic: negative Psych: negative PFSH All Active Problems (Updated 09/01/22 @ 00:23 by Ricardo Poole MD) Chest pain (Acute) Acute appendicitis (Acute) Appendicitis (Acute) Social History Smoking/Tobacco Use Status: Current, status unknown Tobacco Type: cigarettes Tobacco: How many years used: 10 Smoking risk assessment performed?: Yes Alcohol Intake: current Alcohol type: beer, wine and hard liquor Substance use type: does not use Do you feel safe at home: Yes Do you feel safe in your relationship?: Yes Exam Narrative Exam Narrative: Physical Examination General: alert, awake, cooperative, uncomfortable appearing HEENT: normocephalic, atraumatic; PERRL, EOM intact, conjunctiva normal; no nasal discharge; moist mucous membranes, oral and pharyngeal mucosa normal, tolerating secretions Neck: supple, trachea midline; full ROM Chest: normal to inspection Respiratory: normal respiratory effort, speaking in full sentences, clear to auscultation, no wheezing, rales or rhonchi Cardiac: regular rate, regular rhythm, S1S2 intact, no murmurs rubs or gallops GI: abdomen soft, tender abdomen specifically in the right lower quadrant however does have guarding in this region, nondistended Skin: no lesions, rashes or trauma appreciated Neuro: AAOx3, normal speech, moving all extremities Psych: Appropriate mood and affect Course Vital Signs Vital signs: Vital Signs Temperature 37.1 C 08/31/22 22:34 Pulse 79 08/31/22 22:34 Respiratory Rate 24 08/31/22 22:34 Blood Pressure 153/71 H 08/31/22 22:34 Pulse Oximetry 98 08/31/22 22:34 Temperature 37.1 C 08/31/22 22:34 Temperature Source Oral 08/31/22 22:34 Pulse 79 08/31/22 22:34 Respiratory Rate 24 08/31/22 22:34 Blood Pressure 153/71 H 08/31/22 22:34 Blood Pressure Position Sitting 08/31/22 22:34 Pulse Oximetry 98 08/31/22 22:34 Pain Level 5 08/31/22 22:34
[2022-08-31] MEDS: Normal Saline 1,000 ML 1000 ML IV (23:03)
[2022-08-31 23:05] LABS: Abs Immature Grans 0.01 10^3/uL (0.0-0.06); Absolute Basophil Count 0.07 10^3/uL (0.0-0.2); Absolute Eosinophil Count 0.38 10^3/uL (0.0-0.7); Absolute Lymphocyte Count 3.39 10^3/uL (1.2-3.4); Absolute Neutrophil Count 4.66 10^3/uL (1.2-6.7); Basophils % 0.8; Eosinophils % 4.3; HGB 15.5 g/dL (13.5-17.5); Immature Grans % 0.1; MCH 31.1 pg (27.0-33.0); MCHC 34.4 % (32.0-36.0); MCV 90 fL (80-95); MPV 10.8 fL (8.0-11.0); Monocytes % 4.5; Neutrophils % 52.3; Platelet Count 200 10^3/uL (130-400); RBC 4.99 10^6/uL (4.36-5.78); RDW 12.6 % (11.8-14.1); WBC 8.91 10^3/uL (4.4-10.8)
[2022-08-31] MEDS: Omnipaque 350 MG/ML 100 ML BTL IJ (23:05)
[2022-08-31] MEDS: Normal Saline - Diluent 50 ML VIAL IJ (23:06)
[2022-08-31 23:19] LABS: INR 0.9 (0.9-1.1); PTT Activated 22.9 sec (21.5-31.9); Prothrombin Time 9.4 sec (9.3-11.0)
[2022-08-31 23:28] LABS: ALT 48 U/L (16-63); AST 19 U/L (15-37); Albumin 3.7 g/dL (3.4-5.0); Alkaline Phosphatase 93 U/L (46-116); Anion Gap 5.7 mmol/L (3-11); BUN 15 mg/dL (7-18); Bilirubin, Total 0.3 mg/dL (0.2-1.0); CO2 30.3 mmol/L (21.0-32.0); CREATININE 1.2 mg/dL (0.70-1.30); Chloride 104 mmol/L (98-107); Estimated GFR 76.48 (mL/min/1.73m2); Glucose 109 mg/dL (74-106); Lipase 40 U/L (16-77); Potassium 3.6 mmol/L (3.5-5.1); Sodium 140 mmol/L (136-145); Total Protein 7.1 g/dL (6.4-8.2)
--- NOTE | 2022-08-31 23:53 | DI.VRAD_ITS ---
Addendum created by Evangelina Echevarria MD on 09/01/2022 12:18:11 AM EDT: This report contains findings that may be critical to patient care. The pertinent findings were communicated via telephone with Ricardo Poole at 00:17 EDT on 09/01/2022. The findings were acknowledged and understood. Initial report created on 08/31/2022 11:52:44 PM EDT: PROCEDURE INFORMATION: Exam: CT Abdomen And Pelvis With Contrast Exam date and time: 08/31/2022 23:06 Age: 42 years old Clinical indication: Other: Recheck for recent appendicitis diagnosis TECHNIQUE: Imaging protocol: Computed tomography of the abdomen and pelvis with contrast. Contrast material: OMNIPAQUE 350; Contrast volume: 100 ml; Contrast route: INTRAVENOUS (IV); COMPARISON: CT ABDOMEN PELVIS W 08/28/2022 00:06 FINDINGS: Liver: No mass. Gallbladder and bile ducts: No calcified stones. No ductal dilation. Pancreas: No ductal dilation. No masses. Spleen: No splenomegaly or focal lesions. Adrenal glands: No mass. Kidneys and ureters: No hydronephrosis. No renal masses. Stomach and bowel: No obstruction. No mucosal thickening. Appendix: Inflammation of the appendix most pronounced in the midportion diameter 13 mm, mild wall thickening and surrounding edema, minimally increased since recent imaging. The base of the appendix and the tip of the appendix are decompressed. Intraperitoneal space: No free air. No significant fluid collection. Vasculature: No abdominal aortic aneurysm. Lymph nodes: No significantly enlarged lymph nodes. Urinary bladder: Unremarkable as visualized. Reproductive: Unremarkable as visualized. Bones/joints: No acute fracture. Soft tissues: No suspicious lesions. IMPRESSION: Minimal worsening of a mild appearing mid appendicitis. Dictated and Authenticated by: Evangelina Echevarria MD. Ordering:P.DISST Virgilio Silva MD
[2022-08-31] MEDS: Ondansetron 4 MG/2 ML VIAL IVP (23:58)
[2022-08-31] MEDS: PIPERACILLIN/TAZO 4.5 GM in Normal Saline 100 ML IVPB (23:58)
[2022-08-31] MEDS: fentaNYL 100 MCG/2 ML VIAL 25 MCG IVP (23:59)
--- NOTE | 2022-09-01 01:25 | NUR.NOTE ---
Nursing Note: Patient removed all monitoring and states he wants to leave. Provider made aware.
[2022-09-01 01:56] VITALS: BP 115/68; PULSE 69; RESP 16; TEMP 36.9; O2SAT 97
[2022-09-01] MEDS: Normal Saline Flush 10 ML SYR IVP (02:44)
[2022-09-01] MEDS: LORazepam 2 MG/ML VIAL 1 MG IVP (02:44)
[2022-09-01] MEDS: Lactated Ringers 1,000 ML 80 ML IV (02:45)
--- NOTE | 2022-09-01 04:03 | NUR.NOTE ---
Nursing Note: At 03:35 Patient decide to go home and verbalized I have some staff to take care off I need to live right now removed this IV or else I'll remove myself. Explained to patient the disadvantage of leaving with his current condition, and the AMA (against medical advice) form he needs to sign. Patient states,removed this IV and I will sign downstairs. Patient is inpatient and wanted to get it done now. notified. Patient signed the AMA paper and left at 0349.
== END 2022-09-01 03:50 | disposition left against medical advice (07) | DRG 395 ==
LOC: ER 09-01 01:41 → MS 09-01 01:51
PROVIDERS: Admitting Provider General Practice; Emergency Provider Emergency Medicine; Visit Provider General Practice
DX: K35.80 Unspecified acute appendicitis (principal); F43.10 Post-traumatic stress disorder, unspecified; R07.89 Other chest pain
CPT/HCPCS: 36415; 80053; 83690; 86850; 86900; 86901; 96374; 96375; 99285; 74177; 85025; 85610; 85730; J2060; J2405; J2543; J3010; J3490

== ENCOUNTER 2022-09-01 13:27 | Observation (INO) | payer MEDICAID, SELFPAY ==
[2022-09-01] VITALS (10 sets, daily range): BP systolic 115–154; BP diastolic 75–107; PULSE 55–76; RESP 17–27; TEMP 36.2–36.9; O2SAT 93–98; BMI 35.4
--- NOTE | 2022-09-01 12:23 | W.PREOPHP ---
Assessment and Plan Assessment and plan (1) Acute appendicitis: Status: Acute Assessment and plan: We talked for a little while about the natural history of appendicitis, and treatment options. Based on his history, physical, and evolution of the CAT scan, I do recommend appendectomy as a treatment of choice. We talked about the nature of the operation, the anticipated recovery, prognosis, risks, and benefits. I think he has a good understanding of all of these. He provided informed consent, and we will make arrangements to proceed with urgent appendectomy History of Present Illness History of Present Illness Chief Complaint: Abdominal pain Narrative: Gennaro is 42 years old. He came to the emergency department several nights ago with a chief complaint of abdominal pain. He underwent a CAT scan at that time that demonstrated early acute appendicitis. Unfortunately, he left the hospital AGAINST MEDICAL ADVICE. He had increasing pain throughout the next day and a half. He came back to the emergency department last night, and underwent another CAT scan that showed some evolution of the appendicitis. There is no perforation, and there is a minimal amount of periappendiceal inflammation. He was admitted to the hospital at that point, but again left AGAINST MEDICAL ADVICE. I spoke to him on the telephone today, and we talked a little bit about his diagnosis, my concerns with nonoperative management, and I recommended he come back to the hospital for appendectomy. He explained that he has been struggling with some posttraumatic stress disorder associated with a bad experience at the hospital. I offered my condolences, and advised him that we can try to work with him as best possible to relieve the stress and anxiety associated with the experience. Alternatively, he could go to another hospital. However, he prefers to come back here for an appendectomy. PFSH All Active Problems Chest pain (Acute) Acute appendicitis (Acute) Appendicitis (Acute) Social History Smoking/Tobacco Use Status: Current, status unknown Tobacco Type: cigarettes Tobacco: How many years used: 10 Smoking risk assessment performed?: Yes Alcohol Intake: current Alcohol Intake frequency: a few times a week Alcohol type: beer, wine and hard liquor Substance use type: does not use Do you feel safe at home: Yes Do you feel safe in your relationship?: Yes Meds Allergies and Home Medications Allergies Allergy/AdvReac Type Severity Reaction Status Date / Time No Known Allergies Allergy Unverified 09/01/22 13:41 Home Medications Medication Instructions Recorded Confirmed Type Unknown [No Known Home Meds] 08/02/22 08/02/22 History Exam Resp Effort & Inspection: normal respiratory effort Auscultation: clear to auscultation bilaterally Percussion: percussion normal Cardio Rate: regular rate Rhythm: regular rhythm Heart Sounds: S1 normal and S2 normal GI Other: Abdomen is soft and nondistended. He has right lower quadrant tenderness. Results Imaging Abdomen CT scan report/results: report reviewed and image reviewed CT scan - pelvis: report reviewed and image reviewed
--- NOTE | 2022-09-01 13:42 | W.ANESPRE ---
General Info Date of Service Date Performed: 09/01/22 Height: 6 ft 4 in Weight: 132 kg Body Mass Index (BMI): 35.4 Surgical Procedure: Operation Date: 09/01/22 12:40 Proposed Procedure Side Surgeon p Appendectomy Laparoscopic Juan Gonzalez MD Meds Allergies and Home Medications Allergies Allergy/AdvReac Type Severity Reaction Status Date / Time No Known Allergies Allergy Unverified 09/01/22 13:41 Home Medication Medication Instructions Recorded Unknown [No Known Home Meds] 08/02/22 Current Visit Medications: Current Medications Generic Name Dose Route Start Last Admin Trade Name Freq PRN Reason Stop Dose Admin Acetaminophen 1,000 mg 09/01/22 06:00 Acetaminophen 500 Mg Tab PO 10/01/22 23:59 PREOP NORMA Celecoxib 200 mg 09/01/22 06:00 Celecoxib 200 Mg Cap PO 10/01/22 23:59 PREOP NORMA Gabapentin 600 mg 09/01/22 06:00 Gabapentin 300 Mg Cap PO 10/01/22 23:59 PREOP NORMA Ringer's Solution 1,000 mls @ 80 mls/hr 09/01/22 06:00 IV 10/01/22 23:59 INFUSION NORMA Cefazolin Sodium/Dextrose 2 gm in 50 mls @ 100 mls/hr 09/01/22 06:00 Ancef Duplex IVPB 10/01/22 23:59 PREOP NORMA IV Miscellaneous Supplies 1 each 09/01/22 06:00 Iv Access IV 10/01/22 23:59 DIRECTED NORMA Sodium Chloride 0 ml 09/01/22 06:00 Normal Saline Flush 10 Ml Syr IV 10/01/22 23:59 PRN PRN Sodium Chloride 0 ml 09/01/22 06:00 Normal Saline 10 Ml Vial IJ 10/01/22 23:59 DIRECTED PRN Sterile Water 0 ml 09/01/22 06:00 Water,Injection,Sterile 10 Ml Vial IJ 10/01/22 23:59 DIRECTED PRN PFSH Active Problems Active Problems: Problem Status Onset Code Chest pain R07.9 Acute appendicitis K35.80 Appendicitis K37 Tobacco Smoking/Tobacco Use Status: Current, status unknown Tobacco Type: cigarettes Alcohol Alcohol Intake: current Alcohol type: beer, wine and hard liquor Substance Use Substance use type: does not use Vital Signs and Lab Results Lab Results Blood Type / Crossmatch: Patient ABO/Rh A Negative 08/31/22 Antibody Screen NEGATIVE 08/31/22 Complete Blood Count: White Blood Count 8.91 10^3/uL (4.4-10.8) 08/31/22 22:56 Red Blood Count 4.99 10^6/uL (4.36-5.78) 08/31/22 22:56 Hemoglobin 15.5 g/dL (13.5-17.5) 08/31/22 22:56 Hematocrit 45.0 % (40.0-50.0) 08/31/22 22:56 Platelet Count 200 10^3/uL (130-400) 08/31/22 22:56 Venous Blood Lactate 2.0 mmol/L (0.6-1.4) H 08/27/22 23:15 Complete Metabolic Panel: Sodium 140 mmol/L (136-145) 08/31/22 22:56 Potassium 3.6 mmol/L (3.5-5.1) 08/31/22 22:56 Chloride 104 mmol/L (98-107) 08/31/22 22:56 Carbon Dioxide 30.3 mmol/L (21.0-32.0) 08/31/22 22:56 BUN 15 mg/dL (7-18) 08/31/22 22:56 Creatinine 1.2 mg/dL (0.70-1.30) 08/31/22 22:56 Est GFR (CKD-EPI 2020) 76.48 (mL/min/1.73m2) 08/31/22 22:56 Calcium 9.0 mg/dL (8.5-10.1) 08/31/22 22:56 Albumin 3.7 g/dL (3.4-5.0) 08/31/22 22:56 Glucose 109 mg/dL (74-106) H 08/31/22 22:56 Liver Function Panel: Alanine Aminotransferase (ALT/SGPT) 48 U/L (16-63) 08/31/22 22:56 Aspartate Amino Transf (AST/SGOT) 19 U/L (15-37) 08/31/22 22:56 Coagulation Panel: INR International Normalized Ratio 0.9 (0.9-1.1) 08/31/22 22:56 Prothrombin Time 9.4 sec (9.3-11.0) 08/31/22 22:56 Activated Partial Thromboplast Time 22.9 sec (21.5-31.9) 08/31/22 22:56 Cardiac Panel: Troponin I < 50 ng/L (<or=60) 08/03/22 NT-Pro-B Natriuret Pep 71 pg/mL (<300) 08/02/22 Arterial Blood Gas: No Data to Display Venous Blood Gas: No Data to Display Pancreas Panel: Lipase 40 U/L (16-77) 08/31/22 22:56 Thyroid Panel: Thyroid Stimulating Hormone (TSH) 2.08 uIU/mL (0.36-3.74) 08/02/22 23:30 Infectious Disease: No Data to Display Blood Cultures: No Data to Display Toxicology Panel: No Data to Display Anesthesia Assessment and Plan Anesthesia History Personal History: No History of Anesthesia Complications and No History of General Anesthesia Family History: No Family History of Anesthesia Complications Exercise Tolerance Exercise Tolerance: Metabolic Equivalents>4 Pertinent Negatives Pertinent Negatives: No Symptoms of GERD, No Major Cardiovascular Symptoms or Complaints, No Major Pulmonary Symptoms or Complaints and No History of CVA/TIA Cardiac & Pulmonary Exam Cardiac Exam: Normal S1/S2 Heart Sounds Pulmonary Exam: Clear Bilateral Breath Sounds Cardiac and Pulmonary Comment:: Asthma. No medicine taken Implantable Cardiac Device Does patient have a Pacemaker or an ICD?: No Airway Exam Known Difficult Airway: No Mallampati Class: 1 Mouth Opening: Normal (> 3cm) Thyromental Distance: Greater than 3 cm Facial Hair: Full Maldonado Neck Range of Motion: Full ROM Neck Circumference: Normal Teeth Condition: Normal Dentition ASA Classification ASA Score: ASA 2 Emergency Case?: Yes NPO Status NPO Status: Full Stomach Anesthesia Plan Resuscitation Status: Full Code Anesthesia Technique: General Anesthesia Airway Planned: Endotracheal Tube Monitors Used: Standard Monitors
[2022-09-01] MEDS: Celecoxib 200 MG CAP PO (13:54)
[2022-09-01] MEDS: Acetaminophen 500 MG TAB 1000 MG PO (13:54)
[2022-09-01] MEDS: Gabapentin 300 MG CAP 600 MG PO (13:55)
[2022-09-01] MEDS: Lactated Ringers 1,000 ML 80 ML IV (14:12)
[2022-09-01] MEDS: ceFAZolin 2 GM/50 ML BAG IVPB (14:38)
[2022-09-01] MEDS: Bupivacaine 0.25% Pres-Free 30 ML VIAL (15:20)
--- NOTE | 2022-09-01 16:00 | APP_PTH ---
PATIENT: Gennaro Harrison LOC: U#:[id number] AGE/SX: 42/M ROOM: [id number] RE09/01/[address]: Juan Gonzalez MD : 1980 BED: A DIS: 09/01/2022 SPEC #: [id number] RECD: 09/02/22 12:12 STATUS: DARON REQ #: [id number] RICK: 09/01/22 16:[address]: Juan Gonzalez DEPT: Surgical Specimen RECD BY: Linda Dwyer ENTERED: 09/02/22 12:12 SP TYPE: Appendix OTHR DR: None Tissues: 1 - APPENDIX NOT INCIDENTAL Procedures: IMMUNOPEROXIDASE STAIN GROSS AND MICRO LEVEL 3 Comments:
--- NOTE | 2022-09-01 16:24 | W.PM.OP ---
Date of service: 09/01/22 Time of Service: 16:24 Operative Note Operative Note DATE OF PROCEDURE: 09/01/22 PRE-OP DIAGNOSIS: Appendicitis POST-OP DIAGNOSIS: same PROCEDURE: Laparoscopic appendectomy SURGEON: Juan Gonzalez [employer] ELECT[employer]ICS TECHNICIAN: Jane Bonilla ANESTHESIA TYPE: General LMA/ETT Refer to Anesthesia Record ESTIMATED BLOOD LOSS: 50 PATHOLOGY: other (Appendix) COMPLICATIONS: Other (Vomiting) Patient was transported to: PACU Patient's condition: stable Indications: Obi is a 42-year-old male came to the hospital earlier this week with a chief complaint of abdominal pain. He was diagnosed with acute appendicitis, but left the hospital AGAINST MEDICAL ADVICE. He came back last night with abdominal pain, and underwent another CAT scan that demonstrated some evolution of appendicitis. He was admitted point, but left the hospital again AGAINST MEDICAL ADVICE shortly after arriving onto the regular floor. I called him today, and expressed my concerns about nonoperative management of acute appendicitis, and he agreed to come back for appendectomy. Findings: Acute appendicitis Procedure Description: After the induction of general anesthesia, I prepped and draped the anterior abdominal wall in the usual fashion. Next, I made an umbilical incision. I opened the fascia under direct vision. Using Vicryl stitches, I then affixed a 12 mm operating port to the umbilical fascia. I began insufflated the peritoneal cavity. Next, I inserted a 5 mm scope and examine the underlying tissue. There was no evidence of any trauma from the insertion. Next, with the assistance of the laparoscope, I placed 5 mm port in the left lower quadrant and suprapubic position. I then moved the scope into the left lower quadrant, and positioned the patient with some Trendelenburg and left side down. During positioning and insufflation, he did have a small volume of emesis. This was immediately recognized, and suctioned clear in the mouth. The airway team performed endotracheal bronchoscopy, and there were no concerning findings of airway contamination. I started by examining the area of the right lower quadrant. I reflected the greater omentum cephalad and identified the terminal ileum. I traced this to the insertion at the cecum and then identified the base of the appendix at the confluence of the cecal tenia. Next, I mobilized the appendix which did appear acutely inflamed. The base of the appendix appeared normal, but as it turned on itself, the appendix and mesoappendix were quite inflamed and densely adhered to the surrounding tissues. Using tedious dissection, I was able to mobilize this up off of the right anterior abdominal sidewall. The LigaSure was used to divide these adhesions. I did not encounter any purulence, or evidence of perforation. I then used sequential firings of the LigaSure to divide the mesoappendix. Once this was complete I divided the appendix from the cecum at its base with a CHLOE stapler. I placed the appendix into an Endo Catch bag and removed through the umbilical port site. I examined the surgical field. The staple line looked fine. There was no contamination or spillage and the surgical field was hemostatic. I then removed the port sites under the vision the laparoscope and closed the umbilical fascia with 0 Vicryl stitches. Finally, irrigated the skin and approximated the dermis with subcuticular absorbable suture.
[2022-09-01] MEDS: HYDROmorphone 2 MG/ML SYR IVP (16:38)
[2022-09-01] MEDS: LORazepam 2 MG/ML VIAL 0.5 MG IVP (16:47)
--- NOTE | 2022-09-01 17:15 | W.ANESPOSTOP ---
Postoperative Evaluation Date, Time and Location Date Performed: 09/01/22 Time Performed: 17:15 Patient Location: PACU Vital Signs Most Recent Imported Vital Signs: Most Recent Vital Signs Temp Pulse Resp BP Pulse Ox 36.4 C L 56 L 27 H 123/78 95 09/01/22 16:45 09/01/22 17:00 09/01/22 17:00 09/01/22 17:00 09/01/22 17:00 RR has since come down since assessment documentation, RR 16 Pain Score Most Recent Pain Score: Most Recent Pain Score Pain Level 4 09/01/22 17:00 Assessment Mental Status: Awake (Alert & Oriented to Patient Baseline) Airway and Respiratory Function: Patent airway with normal (patient baseline) respiratory exam Cardiovascular Function: Hemodynamically Stable Hydration Status: Adequately Hydrated Nausea & Vomiting: No Nausea or Vomiting Pain: Pain is tolerable per patient Peripheral Nerve Block: Patient did not receive a nerve block
[2022-09-01] MEDS: Enoxaparin 40 MG/0.4 ML SYR SC (18:06)
--- NOTE | 2022-09-01 18:15 | RT.EKG_ITS ---
APPROVED REPORT Exam: Resting ECG Reason for Exam: Chest pain Patient Location: I HR:68 bpm ECG Measurements Heart Rate 68 AXIS AZ 135 P 39 QRSd 99 QRS -14 QT 404 T 12 QTc 430 Conclusion Sinus rhythm...normal P axis, V-rate 50- 99 Normal Electrocardiogram
[2022-09-01] MEDS: Lactated Ringers 1,000 ML 75 ML IV (18:30)
== END 2022-09-01 19:00 | disposition left against medical advice (07) ==
LOC: MS 17:41 → PDS 18:07
PROVIDERS: Admitting Provider Surgery; Visit Provider Surgery
PROC: 0DTJ4ZZ Resection of Appendix, Percutaneous Endoscopic Approach (ICD-10-PCS; CPT 44970; principal; 2022-09-01 12:30)
DX: K35.80 Unspecified acute appendicitis (principal); Z79.899 Other long term (current) drug therapy; F43.10 Post-traumatic stress disorder, unspecified; K91.81 Other intraoperative complications of digestive system; R11.10 Vomiting, unspecified; D37.3 Neoplasm of uncertain behavior of appendix
CPT/HCPCS: 44970; J1650; 88304; 88361; 93005; 93010; G0378; J0690; J1100; J1170; J2001; J2060; J2405; J2704

== ENCOUNTER 2022-12-04 21:58 | Emergency (ER) | payer OTHER, SELFPAY ==
[2022-12-04] VITALS (16 sets, daily range): BP systolic 116–146; BP diastolic 63–80; PULSE 68–79; RESP 13–23; TEMP 36.5; O2SAT 95–99
--- NOTE | 2022-12-04 21:30 | RT.EKG_ITS ---
APPROVED REPORT Exam: Resting ECG Reason for Exam: chest pain Patient Location: E HR:65 bpm ECG Measurements Heart Rate 65 AXIS IN 157 P 14 QRSd 98 QRS -27 QT 419 T 6 QTc 435 Conclusion Sinus rhythm...normal P axis, V-rate 60- 99
--- NOTE | 2022-12-04 21:45 | DI.CT_ITS ---
Exam(s) CT ABDOMEN PELVIS W EXAM: CT ABDOMEN PELVIS W CLINICAL HISTORY: epigastric abdominal pain TECHNIQUE: Imaging Protocol: Axial computed tomography images with coronal and sagittal reformatted images were created and reviewed CONTRAST MATERIAL: Intravenous: Omnipaque 350 Contrast volume:100 mL Oral: No COMPARISON: CT CT ABDOMEN PELVIS W from 08/31/2022 FINDINGS: ABDOMEN: Lung Bases: Normal where visualized. Liver: Fatty infiltration of the liver. No measurable mass. Portal, Superior Mesenteric, and Splenic Veins: Unremarkable. Gallbladder and Biliary Tract: No radiodense calculus or dilation. Pancreas: Normal density, no abnormal calcifications or inflammatory process. Spleen: Normal. Adrenals: No masses seen. Kidneys: Normal size, contour and axis. No radiodense stones or obstructive uropathy. No masses seen. Abdominal Aorta: Abdominal portion non-dilated. Bowel: No obstruction or bowel wall thickening. There is no evidence of appendicitis. There is a mod erate amount of retained stool in the colon. Peritoneal Cavity: No ascites, collection or mesenteric inflammatory response. No free air. Lymph Nodes: Within normal limits. Bones: Within normal limits for the patient's age. Soft Tissues: Unremarkable. PELVIS: Bladder: Symmetric distention, no gross wall thickening. Reproductive Organs: Unremarkable as visualized. Lymph Nodes: Within normal limits. Bones: Within normal limits for the patient's age. IMPRESSION: 1. No acute abdominal or pelvic process. RADIATION DOSE DELIVERED: 1,452.37mGy.cm Total DLP DATA REPOSITORY: All CT scans at this facility are submitted to the National Radiology Data Registry (NRDR) Dose Index Registry (DIR) with the [employer] [place] [employer] ([employer]). RADIATION OPTIMIZATION: All CT scans at this facility use at least one of these dose optimization te chniques: automated exposure control; mA and/or kV adjustment per patient size (includes targeted exa ms where dose is matched to clinical indication); or iterative reconstruction.
--- NOTE | 2022-12-04 21:49 | W.ED.GENAD ---
Discharge Plan Disposition Patient Disposition: [facility] Discharge Details Clinical Impression: Enteritis Primary Care Provider: Unknown,Unknown ED Provider: Bobby Arriaza Meds and New Rx's Prescriptions: New dicyclomine 10 mg capsule 10 mg PO BID Qty: 20 0RF Discharge Data Discharge Date/Time-TO BE ENTERED AT DEPARTURE: 12/05/22 01:34 Discharge Physician: Bobby Arriaza Medical Decision Making MDM: Summary: Patient presents to the emergency department complaining of epigastric pain midepigastric abdominal pain and chest pain. Labs were done as well as an EKG and a CT scan of the abdomen pelvis was obtained as well. [id number] ultrasound of the right upper quadrant and gallbladder was also obtained. Labs were unremarkable, EKG was within normal limits CT scan of the abdomen pelvis only shows some dilated loops of small bowel compatible with early enteritis. [id number] ultrasound the gallbladder was normal except for fatty liver. Patient most likely with enteritis or irritable bowel syndrome as I spoken to him but he says that this been going on for months. He was given Bentyl and analgesics with improvement of his symptoms and will be discharged with follow-up with his primary care doctor. Data Review Analysis All the data on this patient was reviewed by me including laboratory and imaging studies as well as bedside studies performed by me Independent review of Studies Imaging CT scan of the abdomen and pelvis reviewed by me showing some early enteritis, pzzqb-an-obra ultrasound of the gallbladder was normal Lab: Labs were normal including 2 troponins 3 hours apart Risk Stratification: Patient with abdominal and chest pain showing chills mild enteritis and no risk right now for acute coronary syndrome he will follow with his doctor for continuation of following symptoms Differential Diagnosis: 1. Enteritis 2. Irritable bowel syndrome 3. Acute coronary syndrome 4. Cholelithiasis 5. Consultants: Shared disposition: Patient understands feels much better and will follow with his primary care doctor Impression: Medical Records Medical records reviewed: Yes I reviewed the patient's medical records. Imaging Data Radiologic Study: Attestation: I personally reviewed and interpreted this imaging study as follows: Imaging: X-Ray My impression: underpenetrated film and no acute disease Radiologist's impression: : 1980 Age: 42 ? Exam(s) PROCEDURE INFORMATION: Exam: XR Chest Exam date and time: 12/04/2022 10:53 PM Age: 42 years old Clinical indication: Other: Chest pain TECHNIQUE: Imaging protocol: Radiologic exam of the chest. Views: 1 view. COMPARISON: CT CHEST PE CTA 08/03/2022 12:00 AM FINDINGS: Lungs: There are diffuse interstitial infiltrates present. This may represent cardiogenic versus noncardiogenic edema. An acute inflammatory process and/or infectious process/pneumonia are not excluded. Scattered patchy ground-glass opacities within the lungs. These findings are nonspecific and may represent hypoventilatory change,edema, hemorrhage, or an infectious/inflammatory process (acute or chronic). Pleural spaces: There is no evidence of pneumothorax. There are no pleural effusions present. Heart/Mediastinum: The cardiac structures are normal. The mediastinal contour is normal. Bones/joints: The skeletal structures and soft tissues show no evidence of fracture or other acute processes. Soft tissues: The soft tissues of the extrathoracic region are unremarkable. IMPRESSION: 1. ? There are diffuse interstitial infiltrates present. This may represent cardiogenic versus noncardiogenic edema. An acute inflammatory process and/or infectious process/pneumonia are not excluded. 2. ? Scattered patchy ground-glass opacities within the lungs. These findings are nonspecific and may represent hypoventilatory change,edema, hemorrhage, or an infectious/inflammatory process (acute or chronic). Dictated and Authenticated by: Daryl Morales MD. Ordering:JOSE Rosales MD Radiologic Study #2: Attestation: I personally reviewed and interpreted this imaging study as follows: Imaging: CT Scan Radiologist's impression: Gennaro Harrison??42??M??1980 ? Allergy/Adv: carbamazepine, ketorolac, morphine, tramadol (More??) Close Radiology Report (Signed) vrad,Reports - 12/04/22 Radiology Report (Signed) vrad,Reports - 12/04/22 Chest X-Ray 12/04/22 Abdomen/Pelvis CT 12/04/22 Radiology Report (Signed) vrad,Reports - 08/31/22 Abdomen/Pelvis CT (Signed) Eddi Gonzalez - 08/31/22 Radiology Report (Signed) vrad,Reports - 08/28/22 Abdomen/Pelvis CT (Signed) Byron Arceo - 08/27/22 Radiology Report (Signed) Ebony hinson - 08/03/[address] (Signed) Byron Arceo - 08/02/22 Patient Name: Gennaro Harrison Unit #: [id number] Loc: ER ? Ordering Provider:? Status: PRE ER ? Primary Care Provider: Unknown,Unknown Date of Exam: 12/04/22 Sex: M ? : 1980 Age: 42 ? Exam(s) PROCEDURE INFORMATION: Exam: CT Abdomen And Pelvis With Contrast Exam date and time: 12/04/2022 10:38 PM Age: 42 years old Clinical indication: Pain; Other: Epigastric TECHNIQUE: Imaging protocol: Computed tomography of the abdomen and pelvis with contrast. Contrast material: OMNIPAQUE 350; Contrast volume: 100 ml; Contrast route: INTRAVENOUS (IV);? COMPARISON: CT ABDOMEN PELVIS W 08/31/2022 11:06 PM FINDINGS: Lungs: The lungs are normal. Pleural spaces: There is no evidence of pneumothorax. There are no pleural effusions present. Heart: The cardiac structures are normal. Liver: There are no focal liver lesions present. There is no evidence of intrahepatic or extrahepatic biliary ductal dilation. There is a diffuse decrease in hepatic parenchymal density, consistent with mild fatty infiltration. Gallbladder and bile ducts: The gallbladder is normal. There is no cholelitiasis, wall thickening or pericholecystic fluid to suggest cholecystitis. Pancreas: There is moderate pancreatic atrophy and fatty replacement. Spleen: The spleen is enlarged but otherwise normal. Adrenal glands: The adrenal glands are normal without evidence of mass or enlargement. Kidneys and ureters: The kidneys are normal no evidence of nephrolithiasis or hydronephrosis. The ureters are normal caliber and follow a normal caliber and course. Stomach and bowel: A small hiatal hernia is present. There is no evidence of intestinal obstruction. There is mild increased colonic fecal content. The colon is nondilated. These findings suggest a mild degree of constipation.There is fecalization of the small bowel. Consider chronic constipation. Clinical correlation recommended. There are fluid-filled loops of small bowel with air-fluid levels. No significant bowel wall thickening or inflammatory changes. No evidence of obstruction. Consider early enteritis. Appendix: There is focal intraluminal appendiceal calcification, an otherwise normal appendix is identified. There is no evidence of distention or periappendiceal inflammation to suggest appendicitis. Intraperitoneal space: There is no free intraperitoneal air. There is no evidence of free intraperitoneal or pelvic fluid. Vasculature: The aorta is unremarkable without evidence of significant atherosclerosis or aneurysmal disease. The peripheral arterial vascular system visualized is unremarkable. The portal venous system visualized is unremarkable. The peripheral venous vascular system visualized is unremarkable. Lymph nodes: There is no evidence of lymphadenopathy. Urinary bladder: The bladder is normal. Reproductive: The prostate gland and seminal vesicles are normal. Bones/joints: The skeletal structures and soft tissues show no evidence of fracture or other acute processes. Soft tissues: The extra-abdominal soft tissues are normal. There is a fat-containing umbilical hernia. IMPRESSION: 1. ? There are fluid-filled loops of small bowel with air-fluid levels. No significant bowel wall thickening or inflammatory changes. No evidence of obstruction. Consider early enteritis. 2. ? Otherwise, no definitive explanation for patient's current clinical presentation elicited on this study. Dictated and Authenticated by: Daryl Morales MD. Ordering:JOSE Rosales MD Lab Data Lab results reviewed: Yes I reviewed the patient's lab results. ECG Data Attestation: I personally reviewed and interpreted this ECG (s) as follows: Prior ECG tracings: available for review Interpretation: Heart rate 64. Demonstrated no acute ST-T changes HPI General Date/Time Provider Initiated Documentation: 12/04/22 23:04. HPI Narrative: Patient presents emergency department complaining of right-sided chest pain and also right upper quadrant abdominal pain. States that he had appendix out back in July but he still feeling bloated and sometimes has chest pain and right upper quadrant pain associated with nausea. Denies any fever denies any chills reports the pain in his work with he moves his arm and his shoulder. Denies any cough denies any shortness of breath Related Data Home Medications Medication Instructions Recorded Confirmed dicyclomine 10 mg capsule 10 mg PO BID #20 caps 12/05/22 Previous Rx's Medication Instructions Recorded dicyclomine 10 mg capsule 10 mg PO BID #20 caps 12/05/22 Allergies Allergy/AdvReac Type Severity Reaction Status Date / Time carbamazepine [From Tegretol] AdvReac Verified 12/04/22 21:53 ketorolac [From Toradol] AdvReac Verified 12/04/22 21:53 morphine AdvReac Verified 12/04/22 21:53 tramadol AdvReac Verified 12/04/22 21:53 General HORACIO: 3 Review of Systems Narrative: Review of Systems: Constitutional: No fevers, chills, sweats Eye: No recent visual problems ENT: No ear pain, nasal congestion, sore throat Respiratory: No shortness of breath, cough Cardiovascular: No , palpitations, syncope Gastrointestinal: No vomiting, diarrhea Genitourinary: No hematuria Osorio/Lymph: Negative for bruising tendency, swollen lymph glands Endocrine: Negative for excessive thirst, excessive hunger Musculoskeletal: No back pain, neck pain, joint pain, muscle pain, decreased range of motion Integumentary: No rash, pruritus, abrasions Neurologic: Alert & oriented X 4 Psychiatric: No anxiety, depression PFSH All Active Problems (Updated 12/05/22 @ 01:18 by Bobby Arriaza MD) Enteritis (Acute) Medical History Acute appendicitis Appendicitis Low grade mucinous neoplasm of appendix Surgical History Hx of appendectomy (~09/01/22) Social History Smoking/Tobacco Use Status: Current, status unknown Tobacco Type: cigarettes Tobacco: How many years used: 10 Smoking risk assessment performed?: Yes Alcohol Intake: current Alcohol Intake frequency: a few times a week Alcohol type: beer, wine and hard liquor Drug use: Daily Substance use type: marijuana and crack/cocaine Do you feel safe at home: Yes Do you feel safe in your relationship?: Yes Exam Narrative Exam Narrative: Exam; vitals signs as reported above normal Constitutional; In no acute distress, afebrile General: cooperative, healthy appearing, comfortable and no acute distress HEENT: Head: normal to inspection, no palpable skull fracture and normocephalic atraumatic Eyes: : appearance normal, both eyes and all related structures EOM intact bilaterally Pupils: PERRL : conjunctiva normal Direct ophthalmoscopy: normal light reflex, normal conjunctiva, normal visual acuity Ears: Normal TM, normal external canal Nose: normal no rhinorreha Neck no JVD, supple non tender Neck: normal visual inspection, full ROM and no lymphadenopathy Chest: normal inspection of the chest Respiratory : normal respiratory effort and able to speak in complete sentences no wheezing no rales Cardio Rate: regular rate, rhythm: regular rhythm normal heart sounds S1 and S2 no murmurs, gallops, or rubs GI : normal to inspection, normal bowel sounds, soft, mild tender to palpation of the right upper quadrant non distended, no organomegaly Back/Spine/ no CVA tenderness Thoracic/Lumbar Spine: no tenderness or deformities Skin no rashes or lesions Neuro: patient alert oriented x 4 and no meningeal signs, Cranial Nerves: CN's II-XI intact bilaterally, Cognition: normal cognition, Speech: speech normal, Gait: normal gait, Depp tendon reflexes normal 2+ muscle strength 5/5 bilaterally Extremities, no edema, full range of motion, normal strength POCUS Exam (ED) Limited Gallbladder Exam DATE OF EXAM: 12/04/22 TIME OF EXAM: 23:19 PROVIDER THAT PERFORMED THE STUDY: Bobby Arriaza REASON FOR VISIT: Abdominal pain VISUALIZED STRUCTURES: Gallbladder PERTINENT FINDINGS/IMPRESSION: No apparent abnormalities Exam complete
--- NOTE | 2022-12-04 21:55 | DI.RAD_ITS ---
Exam(s) XR CHEST 1V IN DI DEPT EXAM: XR CHEST 1V IN DI DEPT CLINICAL HISTORY: chest pain TECHNIQUE: 2D digital imaging was performed of the chest. One image was obtained. An AP view was ob tained. COMPARISON: No exams were available for comparison FINDINGS: The lungs are hypoinflated. MEDIASTINUM: Normal. HEART: Normal. PULMONARY VASCULATURE: Normal. LUNGS: No focal consolidating infiltrates are seen. PLEURAL SPACE: No pleural effusion or pneumothorax. BONE:Within normal limits for the patient's age. OTHER FINDINGS:Normal. IMPRESSION: No definite acute pulmonary process. If symptoms persist, a PA and lateral chest x-ray within the de partment should be obtained for further evaluation. DATA REPOSITORY: RADIATION DOSE DELIVERED:
[2022-12-04 22:02] LABS: Abs Immature Grans 0.02 10^3/uL (0.0-0.06); Absolute Basophil Count 0.09 10^3/uL (0.0-0.2); Absolute Eosinophil Count 0.26 10^3/uL (0.0-0.7); Absolute Lymphocyte Count 2.99 10^3/uL (1.2-3.4); Absolute Monocyte Count 0.58 10^3/uL (0.1-0.8); Absolute Neutrophil Count 6.13 10^3/uL (1.2-6.7); Basophils % 0.9; Eosinophils % 2.6; HCT 45.2 % (40.0-50.0); HGB 15.8 g/dL (13.5-17.5); Immature Grans % 0.2; Lymphocytes % 29.7; MCH 30.9 pg (27.0-33.0); MCV 88 fL (80-95); MPV 10.7 fL (8.0-11.0); Monocytes % 5.8; Neutrophils % 60.8; Platelet Count 180 10^3/uL (130-400); RBC 5.12 10^6/uL (4.36-5.78); RDW 12.4 % (11.8-14.1); RDW-SD 40.6 fL; WBC 10.07 10^3/uL (4.4-10.8)
[2022-12-04 22:32] LABS: ALT 55 U/L (16-63); AST 23 U/L (15-37); Albumin 3.8 g/dL (3.4-5.0); Alkaline Phosphatase 102 U/L (46-116); Anion Gap 10.5 mmol/L (3-11); BUN 27 mg/dL (7-18); Bilirubin, Total 0.5 mg/dL (0.2-1.0); CO2 25.5 mmol/L (21.0-32.0); CREATININE 1.1 mg/dL (0.70-1.30); Calcium 8.7 mg/dL (8.5-10.1); Chloride 103 mmol/L (98-107); Estimated GFR 84.89 (mL/min/1.73m2); Glucose 106 mg/dL (74-106); Magnesium 1.8 mg/dL (1.8-2.4); Potassium 3.8 mmol/L (3.5-5.1); Sodium 139 mmol/L (136-145); Total Protein 7.1 g/dL (6.4-8.2); Troponin I < 50 ng/L (<or=60)
[2022-12-04] MEDS: Omnipaque 350 MG/ML 100 ML BTL IJ (22:42)
[2022-12-04] MEDS: Normal Saline - Diluent 50 ML VIAL IJ (22:43)
[2022-12-04] MEDS: Normal Saline Flush 10 ML SYR IVP (22:46)
[2022-12-04] MEDS: HYDROmorphone 2 MG/ML SYR 0.5 MG IVP (23:10)
--- NOTE | 2022-12-04 23:15 | DI.VRAD_ITS ---
PROCEDURE INFORMATION: Exam: CT Abdomen And Pelvis With Contrast Exam date and time: 12/04/2022 10:38 PM Age: 42 years old Clinical indication: Pain; Other: Epigastric TECHNIQUE: Imaging protocol: Computed tomography of the abdomen and pelvis with contrast. Contrast material: OMNIPAQUE 350; Contrast volume: 100 ml; Contrast route: INTRAVENOUS (IV); COMPARISON: CT ABDOMEN PELVIS W 08/31/2022 11:06 PM FINDINGS: Lungs: The lungs are normal. Pleural spaces: There is no evidence of pneumothorax. There are no pleural effusions present. Heart: The cardiac structures are normal. Liver: There are no focal liver lesions present. There is no evidence of intrahepatic or extrahepatic biliary ductal dilation. There is a diffuse decrease in hepatic parenchymal density, consistent with mild fatty infiltration. Gallbladder and bile ducts: The gallbladder is normal. There is no cholelitiasis, wall thickening or pericholecystic fluid to suggest cholecystitis. Pancreas: There is moderate pancreatic atrophy and fatty replacement. Spleen: The spleen is enlarged but otherwise normal. Adrenal glands: The adrenal glands are normal without evidence of mass or enlargement. Kidneys and ureters: The kidneys are normal no evidence of nephrolithiasis or hydronephrosis. The ureters are normal caliber and follow a normal caliber and course. Stomach and bowel: A small hiatal hernia is present. There is no evidence of intestinal obstruction. There is mild increased colonic fecal content. The colon is nondilated. These findings suggest a mild degree of constipation.There is fecalization of the small bowel. Consider chronic constipation. Clinical correlation recommended. There are fluid-filled loops of small bowel with air-fluid levels. No significant bowel wall thickening or inflammatory changes. No evidence of obstruction. Consider early enteritis. Appendix: There is focal intraluminal appendiceal calcification, an otherwise normal appendix is identified. There is no evidence of distention or periappendiceal inflammation to suggest appendicitis. Intraperitoneal space: There is no free intraperitoneal air. There is no evidence of free intraperitoneal or pelvic fluid. Vasculature: The aorta is unremarkable without evidence of significant atherosclerosis or aneurysmal disease. The peripheral arterial vascular system visualized is unremarkable. The portal venous system visualized is unremarkable. The peripheral venous vascular system visualized is unremarkable. Lymph nodes: There is no evidence of lymphadenopathy. Urinary bladder: The bladder is normal. Reproductive: The prostate gland and seminal vesicles are normal. Bones/joints: The skeletal structures and soft tissues show no evidence of fracture or other acute processes. Soft tissues: The extra-abdominal soft tissues are normal. There is a fat-containing umbilical hernia. IMPRESSION: 1. There are fluid-filled loops of small bowel with air-fluid levels. No significant bowel wall thickening or inflammatory changes. No evidence of obstruction. Consider early enteritis. 2. Otherwise, no definitive explanation for patient's current clinical presentation elicited on this study. Dictated and Authenticated by: Daryl Morales MD. Ordering:JOSE Rosales MD
--- NOTE | 2022-12-04 23:16 | DI.VRAD_ITS ---
PROCEDURE INFORMATION: Exam: XR Chest Exam date and time: 12/04/2022 10:53 PM Age: 42 years old Clinical indication: Other: Chest pain TECHNIQUE: Imaging protocol: Radiologic exam of the chest. Views: 1 view. COMPARISON: CT CHEST PE CTA 08/03/2022 12:00 AM FINDINGS: Lungs: There are diffuse interstitial infiltrates present. This may represent cardiogenic versus noncardiogenic edema. An acute inflammatory process and/or infectious process/pneumonia are not excluded. Scattered patchy ground-glass opacities within the lungs. These findings are nonspecific and may represent hypoventilatory change,edema, hemorrhage, or an infectious/inflammatory process (acute or chronic). Pleural spaces: There is no evidence of pneumothorax. There are no pleural effusions present. Heart/Mediastinum: The cardiac structures are normal. The mediastinal contour is normal. Bones/joints: The skeletal structures and soft tissues show no evidence of fracture or other acute processes. Soft tissues: The soft tissues of the extrathoracic region are unremarkable. IMPRESSION: 1. There are diffuse interstitial infiltrates present. This may represent cardiogenic versus noncardiogenic edema. An acute inflammatory process and/or infectious process/pneumonia are not excluded. 2. Scattered patchy ground-glass opacities within the lungs. These findings are nonspecific and may represent hypoventilatory change,edema, hemorrhage, or an infectious/inflammatory process (acute or chronic). Dictated and Authenticated by: Daryl Morales MD. Ordering:JOSE Rosales MD
[2022-12-04 23:43] LABS: D-Dimer 211 ng/mlFEU (<500)
[2022-12-05] VITALS (10 sets, daily range): BP systolic 117; BP diastolic 65; PULSE 68–78; RESP 14–23; O2SAT 93–99
[2022-12-05 01:10] LABS: Troponin I < 50 ng/L (<or=60)
== END 2022-12-05 01:34 ==
PROVIDERS: Emergency Provider Emergency Medicine Emergency Medical Services
DX: R07.9 Chest pain, unspecified (principal); K52.9 Noninfective gastroenteritis and colitis, unspecified; G40.909 Epilepsy, unspecified, not intractable, without status epilepticus; I25.2 Old myocardial infarction; F17.210 Nicotine dependence, cigarettes, uncomplicated; Z91.148 Patient's other noncompliance with medication regimen for other reason
CPT/HCPCS: 36415; 76705; 80053; 93005; 96374; 99285; 71045; 74177; 83735; 84484; 85025; 85379; 93010; J1170; J3490